=== PATIENT | male | born 2000 | race Caucasian/White ===

== ENCOUNTER 2021-08-31 21:15 | Emergency (ER) | payer OTHER, SELFPAY ==
[2021-08-31] VITALS (26 sets, daily range): BP systolic 101–128; BP diastolic 44–93; PULSE 98–134; RESP 9–25; O2SAT 94–98
--- NOTE | 2021-08-31 21:15 | DI.CT_ITS ---
Exam(s) CT CHEST/ABD/PEL W CT THORACIC LUMBAR SPINE REC EXAM: CT CHEST/ABD/PEL W TECHNIQUE: CT examination of the chest, abdomen, and pelvis was performed with intravenous infusion of 100 cc of Omnipaque 350. Thoracic and lumbar spine reconstructions were also obtained and interpreted period COMPARISON: CT CT THORACIC LUMBAR SPINE REC from 08/31/2021 FINDINGS: There is no evidence of a thoracic vascular injury by noncontrast criteria. The lungs are predomina ntly clear, however there are ground-glass opacities in right upper lobe and right middle lobe anteri va, this appearance would be consistent with pulmonary contusion subjacent to the known 5th through 7th rib fractures. No pneumothorax or pleural effusion. No mediastinal hematoma. No adenopathy in the chest. Tracheobron chial tree appears intact. The liver, spleen, and pancreas appear normal. Gallbladder and bile ducts are normal. Adrenals and kidneys are unremarkable. No evidence of urinary tract injury or obstruction. No abdominal or pelvic vascular injury seen. No abdominal or pelvic adenopathy. No significant abdomi nal wall hernia or hematoma. No evidence of bowel injury. There are fractures of the right 5th through 7th ribs anteriorly, minimally displaced. No additional fracture identified.. Thoracic and lumbar spine reconstructions reveal no evidence of spinal fracture. IMPRESSION: Right 5th through 7th rib fractures anteriorly with presumed associated anterior right pulmonary cont usion as described above. No additional injury seen.. RADIATION DOSE DELIVERED: 1040.76 mGy.cm Total DLP 1040.76 mGy.cm Total DLP 1040.76 mGy.cm Total DLP !Error CTDIvol DATA REPOSITORY: All CT scans at this facility are submitted to the National Radiology Data Registry (NRDR) Dose Index Registry (DIR) with the [employer] ([employer]). RADIATION OPTIMIZATION: All CT scans at this facility use at least one of these dose optimization te chniques: automated exposure control; mA and/or kV adjustment per patient size (includes targeted exa ms where dose is matched to clinical indication); or iterative reconstruction.
--- NOTE | 2021-08-31 21:15 | DI.CT_ITS ---
Exam(s) CT HEAD CERVICAL SPINE WO EXAM: CT HEAD CERVICAL SPINE WO COMPARISON: No exams were available for comparison FINDINGS: CT examination of the cervical spine was performed without contrast administration. There is no evidence of acute cervical spine fracture or dislocation. Intervertebral disc spaces are well maintained. Tracheolaryngeal structures appear intact. No cervical mass or adenopathy. Noncontrast cranial CT was performed. Ventricular system is normal in appearance. No evidence of acute intracranial hemorrhage, mass effect, or midline shift. No calvarial fracture. There is probable minimally displaced fracture of the inferior wall of the ri ght orbit with presumed hemorrhage and debris in the right maxillary antrum. No gross deformity of t he orbital contents. Minimally displaced poorly visualized nasal bone fractures, of uncertain age. Temporal bone structures appear intact and mastoid air cells are clear. Visualized mastoid air cells and paranasal sinuses appear clear. IMPRESSION: No evidence of acute cervical spine injury. No evidence of acute intracranial injury. There does appear to be a minimally displaced fracture of the inferior wall of the right orbit. Possible acute nasal bone fractures as well. RADIATION DOSE DELIVERED: 1,317.52mGy.cm Total DLP 1,317.52mGy.cm Total DLP !Error CTDIvol DATA REPOSITORY: All CT scans at this facility are submitted to the National Radiology Data Registry (NRDR) Dose Index Registry (DIR) with the [employer] (ACR). RADIATION OPTIMIZATION: All CT scans at this facility use at least one of these dose optimization te chniques: automated exposure control; mA and/or kV adjustment per patient size (includes targeted exa ms where dose is matched to clinical indication); or iterative reconstruction.
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
[2021-08-31 21:50] LABS: Abs Immature Grans 0.11 10^3/uL (0.0-0.06); HCT 46.1 % (40.0-50.0); HGB 15.3 g/dL (13.5-17.5); MCH 30.8 pg (27.0-33.0); MCHC 33.2 % (32.0-36.0); MCV 93 fL (80-95); MPV 9.1 fL (8.0-11.0); Platelet Count 417 10^3/uL (130-400); RBC 4.96 10^6/uL (4.36-5.78); RDW 13.2 % (11.8-14.1); RDW-SD 45.2 fL; WBC 14.18 10^3/uL (4.4-10.8)
[2021-08-31 22:01] LABS: ALT 141 U/L (16-63); AST 211 U/L (15-37); Albumin 3.9 g/dL (3.4-5.0); Alkaline Phosphatase 108 U/L (46-116); Anion Gap 15.1 mmol/L (3-11); BUN 5 mg/dL (7-18); Bilirubin, Total 0.4 mg/dL (0.2-1.0); CO2 22.9 mmol/L (21.0-32.0); CREATININE 1.2 mg/dL (0.70-1.30); Chloride 105 mmol/L (98-107); Glucose 131 mg/dL (74-106); Potassium 3.2 mmol/L (3.5-5.1); Sodium 143 mmol/L (136-145); Total Protein 7.6 g/dL (6.4-8.2)
[2021-08-31 22:06] LABS: ETHANOL BLOOD 251.9 mg/dL (<10); Lipase 96 U/L (73-393)
[2021-08-31 22:08] LABS: INR 1.2 (0.9-1.1); Prothrombin Time 12.4 sec (9.3-11.0)
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
[2021-08-31 22:25] LABS: Absolute Lymphocyte Count 9.36 10^3/uL (1.2-3.4); Absolute Monocyte Count 0.28 10^3/uL (0.1-0.8); Absolute Neutrophil Count 4.54 10^3/uL (1.2-6.7); Atypical Lymphocytes % 10
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
[2021-08-31 22:26] LABS: Source Nasal/Nares
[2021-08-31 22:26] LABS: Diff Comment Manual Differential; RBC Morphology Normal
[2021-08-31 22:28] LABS: *AMPHETAMINES SCREEN URINE Negative (Negative); *BARBITURATES SCREEN URINE Negative (Negative); *BENZODIAZEPINES SCREEN URINE Negative (Negative); Cannabinoids THC Positive (Negative); Cocaine Screen,Urine Negative (Negative); METHADONE URINE SCREEN Negative (Negative); OPIATES URINE SCREEN Negative (Negative)
[2021-08-31 22:32] LABS: Tricyclic Antidepressants Negative (Negative)
--- NOTE | 2021-08-31 22:52 | NUR.NOTE ---
Nursing Note: Leeroy Titi, brother, phone number [phone].
[2021-08-31 23:05] LABS: COVID-19 PCR Negative (Negative)
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
[2021-08-31] MEDS: HYDROmorphone 2 MG/ML VIAL (23:46)
== END 2021-08-31 23:35 | disposition short-term general hospital (02) ==
PROVIDERS: Emergency Provider Student in an Organized Health Care Education/Training Program
DX: S27.321A Contusion of lung, unilateral, initial encounter (principal); S22.42XA Multiple fractures of ribs, left side, initial encounter for closed fracture; S02.31XA Fracture of orbital floor, right side, initial encounter for closed fracture; S02.40CA Maxillary fracture, right side, initial encounter for closed fracture; S01.21XA Laceration without foreign body of nose, initial encounter; S01.311A Laceration without foreign body of right ear, initial encounter; R41.82 Altered mental status, unspecified; V89.2XXA Person injured in unspecified motor-vehicle accident, traffic, initial encounter; F10.129 Alcohol abuse with intoxication, unspecified; Y90.8 Blood alcohol level of 240 mg/100 ml or more
CPT/HCPCS: 12011; 74177; 80053; 80307; 83690; 86850; 86900; 86901; 87635; 96374; 99285; 70450; 71260; 72125; 80320; 85025; 85610